=== PATIENT | male | born 1995 | race Caucasian/White ===

== ENCOUNTER 2016-08-26 13:07 | Emergency (ER) | payer OTHER ==
[~2016-08-26] VITALS: Ht 193 cm; Wt 123.0 kg
[2016-08-26 15:58] VITALS: BP 105/55
== END 2016-08-26 15:58 | disposition home or self-care (01) ==
LOC: RME 13:07 → EME 13:07 → RME 15:58
PROC: 0HQGXZZ Repair Left Hand Skin, External Approach (ICD-10-PCS; principal; 2016-08-26)
DX: S61.412A Laceration without foreign body of left hand, initial encounter (principal); W26.0XXA Contact with knife, initial encounter; Y93.G1 Activity, food preparation and clean up; Y99.0 Civilian activity done for income or pay
CPT/HCPCS: 99281; 99284